=== PATIENT | male | born 1985 | race Caucasian/White ===

== ENCOUNTER 2021-03-15 15:49 | Emergency (ER) | payer OTHER ==
[2021-03-15 16:11] VITALS: BP 119/70; PULSE 70; TEMP 98; BMI 22.4
[2021-03-15] MEDS ORDERED: IBUPROFEN 600 MG TABLET (FP) PO ONE ×2 (18:18→18:21)
== END 2021-03-15 18:27 | disposition home or self-care (01) ==
LOC: JERFT 15:49
DX: M54.50 Low back pain, unspecified (principal)
CPT/HCPCS: 99283-25